=== PATIENT | female | born 1945 | race Caucasian/White ===

== ENCOUNTER → 2017-01-09 | Outpatient (CLI) | payer OTHER | LOC: RAD 12:10 | DX: M25.551 Pain in right hip (principal); M25.552 Pain in left hip | CPT/HCPCS: 73522 ==

== ENCOUNTER 2021-02-27 17:13 | Inpatient (IN) | payer OTHER ==
[~2021-02-27] VITALS: Ht 157.5 cm; Wt 72.6 kg
[~2021-02-27 17:13] MED LIST: ATIVAN0.5 MG PO; CEFUROXIME500 MG PO; DIFLUCAN150 MG PO; ECOTRIN81 MG PO; FEOSOL325 MG PO; JANUVIA25 MG PO; LEVAQUIN500 MG PO; LOPRESSOR 25 MG25 MG PO; MEDROL4 MG PO; PLAVIX 75 MG TA75 MG PO; PREDNISONE10 MG PO; PRINIVIL10 MG PO; SPIRIVA18 MCG INH; SYMBICORT 160-1 INHA INH; VITAMIN D350 MCG PO; ZANTAC 150 MG150 MG PO; ZOCOR20 MG PO; [UNRECOGNIZED DRUG - REMARK] PO
[2021-02-27 18:50] LABS: HEMOGLOBIN 13.8 gm/dl (12.3-15.3); RED BLOOD COUNT 4.48 M/UL (4.00-5.10); WHITE BLOOD COUNT 7.6 K/UL (4.5-11.0)
[2021-02-27 19:10] LABS: BUN/CREATININE RATIO 21 (0-10)
[2021-02-27] MEDS ORDERED: LOPRESSOR 25 MG25 MG PO (22:39)
[2021-02-27] MEDS ORDERED: ACID REDUCER20 MG PO (22:40)
[2021-02-27] MEDS ORDERED: LISINOPRIL5 MG PO (22:43)
[2021-02-27] MEDS ORDERED: CLARITIN10 M2 PO (22:44)
[2021-02-27] MEDS ORDERED: JANUVIA 50 MG T50 MG PO (22:45)
[2021-03-01 04:14] LABS: HEMOGLOBIN 13.1 gm/dl (12.3-15.3); RED BLOOD COUNT 4.31 M/UL (4.00-5.10)
[2021-03-01 04:26] LABS: WHITE BLOOD COUNT 10.5 K/UL (4.5-11.0)
[2021-03-01 04:37] LABS: BUN/CREATININE RATIO 29 (0-10)
[2021-03-02] MEDS ORDERED: MEDROL DOSEPAK 24 MG PO ×2 (11:02→11:03)
== END 2021-03-02 10:58 | disposition home or self-care (01) | DRG 189 ==
LOC: ER1 17:13 → CDU 21:22 → MED SURG 4 21:22
PROVIDERS: Physician Assistant Medical; ADMIT Internal Medicine
DX: J96.01 Acute respiratory failure with hypoxia (principal); J44.1 Chronic obstructive pulmonary disease with (acute) exacerbation; I25.10 Atherosclerotic heart disease of native coronary artery without angina pectoris; I10 Essential (primary) hypertension; Z20.822 Contact with and (suspected) exposure to COVID-19; E11.9 Type 2 diabetes mellitus without complications; F17.210 Nicotine dependence, cigarettes, uncomplicated; K59.09 Other constipation; Z90.49 Acquired absence of other specified parts of digestive tract; Z90.710 Acquired absence of both cervix and uterus; Z95.5 Presence of coronary angioplasty implant and graft; Z88.8 Allergy status to other drugs, medicaments and biological substances; Z84.89 Family history of other specified conditions; Z99.81 Dependence on supplemental oxygen; Z79.84 Long term (current) use of oral hypoglycemic drugs; Z79.02 Long term (current) use of antithrombotics/antiplatelets; Z79.82 Long term (current) use of aspirin; Z79.899 Other long term (current) drug therapy
CPT/HCPCS: 36415; 71045; 80048; 80053; 82550; 82553; 82962; 83605; 83735; 83874; 83880; 84484; 85025; 85027; 87040; 94640; 94664; 94760; 96374; 96375; 96376; 99285; G0378; J0696; J1650; J1956; J2920; J2930; U0002

== ENCOUNTER → 2021-04-12 | Outpatient (CLI) | payer OTHER ==
[~2021-04-12] MED LIST changes: +ACID REDUCER20 MG PO; +CLARITIN10 M2 PO; +JANUVIA 50 MG T50 MG PO; +LISINOPRIL5 MG PO; +MEDROL DOSEPAK 24 MG PO
== END ==
LOC: KOH-I 10:00
DX: F17.210 Nicotine dependence, cigarettes, uncomplicated (principal)
CPT/HCPCS: 71271

== ENCOUNTER 2021-05-27 14:37 | Inpatient (IN) | payer OTHER ==
[~2021-05-27] VITALS: Ht 157.5 cm; Wt 74.8 kg
[2021-05-27 15:33] LABS: HEMOGLOBIN 15.3 gm/dl (12.3-15.3); RED BLOOD COUNT 4.9 M/UL (4.00-5.10); WHITE BLOOD COUNT 12.7 K/UL (4.5-11.0)
[2021-05-27 15:50] LABS: BUN/CREATININE RATIO 21 (0-10)
[2021-05-28 05:45] LABS: HEMOGLOBIN 12.9 gm/dl (12.3-15.3); RED BLOOD COUNT 4.24 M/UL (4.00-5.10); WHITE BLOOD COUNT 5.1 K/UL (4.5-11.0)
[2021-05-28 06:33] LABS: BUN/CREATININE RATIO 22 (0-10)
--- NOTE | 2021-05-28 16:10 | NUR ---
MONITOR ROOM CALLED AND I NOTICED MONITOR HEART RATE FOR 4109 WAS 180'S. HER CALL HERNANDES RANG AT THE SAME TIME PATIENT WAS SHAKEN UP SAID HER CHEST WAS RUNNING AWAY WITH HER. I CALLED DR CHINCHILLA AND NEW ORDERS NOTED. WITHIN A MINUTE OR SO HER HEART RATE WAS NSR RHYTHM. SHE DID RECEIVE HER HOME DOSE OF METOPROLOL AND ARDIZEM PUSH. SHE RESPONDED WELL TO BOTH MEDICATIONS.
[2021-05-29 07:51] LABS: HEMOGLOBIN 11.8 gm/dl (12.3-15.3); RED BLOOD COUNT 3.94 M/UL (4.00-5.10); WHITE BLOOD COUNT 5.3 K/UL (4.5-11.0)
[2021-05-29 08:26] LABS: BUN/CREATININE RATIO 32 (0-10)
[2021-05-30 06:45] LABS: HEMOGLOBIN 12.4 gm/dl (12.3-15.3); RED BLOOD COUNT 4.12 M/UL (4.00-5.10)
[2021-05-30 06:47] LABS: WHITE BLOOD COUNT 3.2 K/UL (4.5-11.0)
[2021-05-30 07:10] LABS: BUN/CREATININE RATIO 38 (0-10)
[2021-05-31 06:23] LABS: HEMOGLOBIN 12.4 gm/dl (12.3-15.3); RED BLOOD COUNT 4.17 M/UL (4.00-5.10); WHITE BLOOD COUNT 3.6 K/UL (4.5-11.0)
[2021-05-31 06:43] LABS: BUN/CREATININE RATIO 46 (0-10)
[2021-05-31] MEDS ORDERED: DECADRON6 MG PO (16:24)
[2021-05-31] MEDS ORDERED: LEVOFLOXACIN500 MG PO (16:24)
[2021-06-01 07:41] LABS: RED BLOOD COUNT 4.06 M/UL (4.00-5.10); WHITE BLOOD COUNT 4.2 K/UL (4.5-11.0)
[2021-06-01 07:51] LABS: BUN/CREATININE RATIO 47 (0-10)
== END 2021-06-01 13:33 | disposition home health service (06) | DRG 177 ==
LOC: ER1 14:37 → MED SURG 4 21:17 → CDU 21:17 → MED SURG 4 05-28 00:56
PROVIDERS: Internal Medicine; Student in an Organized Health Care Education/Training Program; ADMIT Internal Medicine
PROC: 3E0333Z Introduction of Anti-inflammatory into Peripheral Vein, Percutaneous Approach (ICD-10-PCS; principal; 2021-05-27)
PROC: B24BZZ4 Ultrasonography of Heart with Aorta, Transesophageal (ICD-10-PCS; 2021-05-27)
PROC: XW033E5 Introduction of Remdesivir Anti-infective into Peripheral Vein, Percutaneous Approach, New Technology Group 5 (ICD-10-PCS; 2021-05-27)
PROC: 3E02340 Introduction of Influenza Vaccine into Muscle, Percutaneous Approach (ICD-10-PCS; 2021-06-01)
DX: U07.1 COVID-19 (principal); J12.82 Pneumonia due to coronavirus disease 2019; J15.9 Unspecified bacterial pneumonia; J96.21 Acute and chronic respiratory failure with hypoxia; J44.1 Chronic obstructive pulmonary disease with (acute) exacerbation; J44.0 Chronic obstructive pulmonary disease with (acute) lower respiratory infection; E44.0 Moderate protein-calorie malnutrition; I25.10 Atherosclerotic heart disease of native coronary artery without angina pectoris; I27.20 Pulmonary hypertension, unspecified; E86.0 Dehydration; I10 Essential (primary) hypertension; F17.210 Nicotine dependence, cigarettes, uncomplicated; E11.9 Type 2 diabetes mellitus without complications; E55.9 Vitamin D deficiency, unspecified; K21.9 Gastro-esophageal reflux disease without esophagitis; F41.9 Anxiety disorder, unspecified; E88.09 Other disorders of plasma-protein metabolism, not elsewhere classified; E66.9 Obesity, unspecified; I07.1 Rheumatic tricuspid insufficiency; Z79.01 Long term (current) use of anticoagulants; Z79.82 Long term (current) use of aspirin; Z95.5 Presence of coronary angioplasty implant and graft; Z79.4 Long term (current) use of insulin; Z90.49 Acquired absence of other specified parts of digestive tract; Z90.710 Acquired absence of both cervix and uterus; Z88.8 Allergy status to other drugs, medicaments and biological substances; Z82.3 Family history of stroke; Z82.5 Family history of asthma and other chronic lower respiratory diseases; Z83.3 Family history of diabetes mellitus; Z68.30 Body mass index [BMI] 30.0-30.9, adult; Z23 Encounter for immunization
CPT/HCPCS: ECHO; 36415; 36600; 71045; 71046; 80048; 80053; 82550; 82553; 82728; 82803; 82962; 83605; 83735; 83874; 83880; 84484; 85025; 85027; 85379; 86140; 87040; 90686; 93005; 93306; 93970; 94640; 94760; 96374; 96375; 99285; G0008; J0456; J0696; J1100; J1650; J2405; J7030; Q9967; U0002

== ENCOUNTER → 2021-12-21 | Outpatient (CLI) | payer OTHER, MEDICARE ==
[~2021-12-21] MED LIST changes: +DECADRON6 MG PO; +LEVOFLOXACIN500 MG PO
== END ==
LOC: EXRD 14:03
DX: M79.604 Pain in right leg (principal); M79.605 Pain in left leg; R60.0 Localized edema
CPT/HCPCS: 93925; 93970

== ENCOUNTER → 2022-01-09 | Outpatient (CLI) | payer OTHER, MEDICARE | LOC: EXRD 13:16 | DX: M54.50 Low back pain, unspecified (principal); M79.672 Pain in left foot; J44.9 Chronic obstructive pulmonary disease, unspecified; M43.16 Spondylolisthesis, lumbar region; M51.36 Other intervertebral disc degeneration, lumbar region; Z51.81 Encounter for therapeutic drug level monitoring; Z03.818 Encounter for observation for suspected exposure to other biological agents ruled out; I25.10 Atherosclerotic heart disease of native coronary artery without angina pectoris; E11.9 Type 2 diabetes mellitus without complications; I10 Essential (primary) hypertension; E55.9 Vitamin D deficiency, unspecified; E53.8 Deficiency of other specified B group vitamins; M79.89 Other specified soft tissue disorders | CPT/HCPCS: 71046; 72100; 73630 ==

== ENCOUNTER → 2022-02-06 | Outpatient (CLI) | payer OTHER, MEDICARE | LOC: KOH-I 12:51 | DX: M53.9 Dorsopathy, unspecified (principal); M47.816 Spondylosis without myelopathy or radiculopathy, lumbar region | CPT/HCPCS: 72148 ==

== ENCOUNTER → 2022-02-26 | Outpatient (CLI) | payer OTHER, MEDICARE | LOC: US 10:15 | DX: I87.2 Venous insufficiency (chronic) (peripheral) (principal); I65.23 Occlusion and stenosis of bilateral carotid arteries | CPT/HCPCS: 93880 ==